=== PATIENT | female | born 1945 | race Caucasian/White ===

== ENCOUNTER 2017-08-25 04:59 | Inpatient (IN) | payer OTHER ==
[2017-07-16 13:46] VITALS: BMI 32.0
--- NOTE | 2017-07-16 14:22 | PAT Medication Instructions ---
Service Date Jul 16, 2017. Current Home Medication List Albuterol Hfa (Ventolin Hfa), 1 PUFFS INH Q6H PRN for PRN Aspirin (Aspirin Ec), 81 MG PO QPM Calcitriol (Rocaltrol Cap), 0.5 MCG PO QPM Calcium Carbonate-Vitamin D (Calcium + D), 1 TAB PO QPM Cholecalciferol (Vitamin D3), 1 TAB PO QPM Diclofenac (Voltaren), 75 MG PO QPM Levothyroxine Sodium (Levothyroxine Sodium), 1 TAB PO QAM Lisinopril (Prinivil), 5 MG PO QAM Lorazepam (Ativan), 0.5 MG PO TID PRN for PRN Multivitamin (Multivitamin), 1 TAB PO QPM Pantoprazole (Protonix), 40 MG PO QAM Ranitidine (Zantac), 150 MG PO HS Rosuvastatin Calcium (Crestor), 5 MG PO HS PRN for 0 Medication Instructions For Your Scheduled Surgery - Hold the following medications the morning of surgery: Diclofenac (Voltaren), 75 MG PO QPM (otherwise okay to continue per surgeon) Lisinopril (Prinivil), 5 MG PO QAM - Take the following medications the morning of surgery with a sip of water OTHERWISE NOTHING TO EAT OR DRINK AFTER MIDNIGHT: Albuterol Hfa (Ventolin Hfa), 1 PUFFS INH Q6H PRN for PRN (use if needed; BRING TO HOSPITAL) Levothyroxine Sodium (Levothyroxine Sodium), 1 TAB PO QAM Pantoprazole (Protonix), 40 MG PO QAM Lorazepam (Ativan), 0.5 MG PO TID PRN for PRN - Take the following medications as scheduled the night before surgery: Albuterol Hfa (Ventolin Hfa), 1 PUFFS INH Q6H PRN for PRN Aspirin (Aspirin Ec), 81 MG PO QPM Calcitriol (Rocaltrol Cap), 0.5 MCG PO QPM Calcium Carbonate-Vitamin D (Calcium + D), 1 TAB PO QPM Cholecalciferol (Vitamin D3), 1 TAB PO QPM Multivitamin (Multivitamin), 1 TAB PO QPM Ranitidine (Zantac), 150 MG PO HS Rosuvastatin Calcium (Crestor), 5 MG PO HS Lorazepam (Ativan), 0.5 MG PO TID PRN for PRN If you have any questions please call us at [phone] or [phone] or [phone]
[2017-07-16 14:58] LABS: BASO % 1.5 %; EOS % 2.5 %; EOS ABS # 0.17 K/uL (0-0.5); HEMATOCRIT 44.9 % (42-52); HEMOGLOBIN 15.5 g/dL (14.0-18.0); IG# 0.01 K/uL (0.00-0.02); LYMPH % 38.5 %; MEAN CELL VOLUME 92.8 fL (80-100); MEAN CORPUSCULAR HGB CONC 34.5 g/dl (32-36); MEAN PLATELET VOLUME 9.5 fL (7.4-10.4); MONO % 7.3 %; MONO ABS # 0.49 K/uL (0.11-0.59); NEUT % 50.1 %; NEUT ABS # 3.38 K/uL (1.4-6.5); PLATELET COUNT 256 K/uL (130-400); RED CELL DISTRIBUTION WIDTH CV 12.3 % (11.5-14.5); RED CELL DISTRIBUTION WIDTH SD 41.6 fL (36.4-46.3); WHITE BLOOD COUNT 6.75 K/uL (4.8-10.8)
[2017-07-16 15:09] LABS: PTT PATIENT 28.8 SECONDS (21.0-31.0)
[2017-07-16 15:50] LABS: ALBUMIN 3.9 gm/dl (3.4-5.0); CALCIUM 9.8 mg/dl (8.5-10.1); CREATININE 0.91 mg/dl (0.60-1.40); POTASSIUM 4.2 mmol/L (3.5-5.1)
[2017-07-16 15:52] LABS: TOTAL PROTEIN 7.4 gm/dl (6.4-8.2)
--- NOTE | 2017-08-23 08:06 | History and Physical ---
History & Physical Date Aug 23, 2017. Chief Complaint left knee pain History of Present Illness The patient is a 72 year old male with complaints of left knee pain for years. Cant do adls and limping all the time. Has failed all forms of conservative measures. shes ready for left tka. Additional History Hepatic Disease: No Endocrine Disorder: No Kidney Disease: No Hypertension: Yes Heart Disease: No Bleeding Tendencies: No Infectious Diseases: No Allergies Coded Allergies: No Known Allergies (Unverified , 07/16/17) Home Medications Scheduled Aspirin (Aspirin Ec), 81 MG PO QPM Calcitriol (Rocaltrol Cap), 0.5 MCG PO QPM Calcium Carbonate-Vitamin D (Calcium + D), 1 TAB PO QPM Cholecalciferol (Vitamin D3), 1 TAB PO QPM Diclofenac (Voltaren), 75 MG PO QPM Levothyroxine Sodium (Levothyroxine Sodium), 1 TAB PO QAM Lisinopril (Prinivil), 5 MG PO QAM Multivitamin (Multivitamin), 1 TAB PO QPM Pantoprazole (Protonix), 40 MG PO QAM Ranitidine (Zantac), 150 MG PO HS Scheduled PRN Albuterol Hfa (Ventolin Hfa), 1 PUFFS INH Q6H PRN for PRN Lorazepam (Ativan), 0.5 MG PO TID PRN for PRN Rosuvastatin Calcium (Crestor), 5 MG PO HS PRN for 0 Physical Examination Skin: warm/dry, no rash Eyes: normal inspection, EOMI, sclerae normal ENT: normal ENT inspection, pharynx normal Head: normocephalic, atraumatic Neck: supple, no adenopathy, trachea midline Respiratory/Chest: lungs clear, normal breath sounds, no respiratory distress Cardiovascular: regular rate, rhythm, no edema, no murmur Abdomen / GI: normal bowel sounds, non tender Back: normal inspection Extremities: normal inspection, normal range of motion, + pertinent finding Neurologic/Psych: no motor/sensory deficits, alert, normal reflexes, oriented x 3 Addiitonal Comments: pain with rom left knee and pain along medial joint line. Diagnosis djd left knee Plan of Treatment plan is to admit and undergo left tka.
[~2017-08-25] VITALS: Ht 162.6 cm; Wt 85.6 kg
[2017-08-25] VITALS (9 sets, daily range): BP systolic 112–179; BP diastolic 65–84; PULSE 56–73; TEMP 36.2–37; O2SAT 95–100; Ht 162.6 cm; Wt 85.6 kg
[~2017-08-25 04:59] MED LIST: ASPI81TA28 PO; CALC0.2510 PO; CALC600T9 PO; CHOL1000 PO; DICL-201 PO; LEVO100T7 PO; LISI-729 PO; LORA-741 PO; MULT-506 PO; PANT40TA PO; ROSU5TAB PO; VNTHFA/IN INH; ZNTT/150 PO
[2017-08-25] MEDS ORDERED: ROPIVACAINE 5MG/ML 30 ML 150 MG, BUPIVACAINE 0.5% MPF INJ 30 ML, EpINEphrine HCL INJ 0.... INFIL SCH ×8 (06:00)
[2017-08-25] MEDS ORDERED: CeleBREX 200 MG CAP PO SCH (06:00)
[2017-08-25] MEDS ORDERED: METOCLOPRAMIDE HCL 10 MG TAB PO SCH (06:00)
[2017-08-25] MEDS ORDERED: DEXAMETHASONE 4 MG TAB PO SCH (06:00)
[2017-08-25] MEDS ORDERED: LACTATED RINGER'S 1000ML 1,000 ML IV SCH (06:00)
[2017-08-25] MEDS ORDERED: CEFAZOLIN 2000MG IV PUSH 10 ML IV SCH (06:00)
[2017-08-25] MEDS ORDERED: LACTATED RINGER'S 1000ML 500 ML IV SCH (06:00)
[2017-08-25] MEDS ORDERED: ACETAMINOPHEN 500 MG TAB PO SCH (06:00)
[2017-08-25] MEDS ORDERED: FAMOTIDINE 20 MG TAB PO SCH (06:00)
[2017-08-25] MEDS ORDERED: LACTATED RINGER'S 1000ML IV SCH (06:00)
[2017-08-25] MEDS: TRANEXAMIC ACID INJ 1,000 MG in SYRINGE 0 ML IV SCH ×2 (06:30→06:51)
[2017-08-25] MEDS ORDERED: BUPIVACAINE 0.25% 30 ML VIAL ONE (06:31)
[2017-08-25] MEDS ORDERED: BUPIVACAINE 0.5 % 5 MG/1 ML PF 10ML VIAL ONE (06:31)
[2017-08-25] MEDS ORDERED: POVIDONE-IODINE OP SOLN 30 ML BTL ONE (06:38)
[2017-08-25] MEDS ORDERED: BACITRACIN 50000 UNIT VIAL ONE ×2 (06:38→08:04)
[2017-08-25] MEDS ORDERED: ORTHO JOINT ANESTHETIC ONE (06:38)
--- NOTE | 2017-08-25 06:45 | History & Physical Bridge Note ---
H&P Re-Evaluation Bridge Note: I have examined the patient, reviewed the History & Physical and in the interval since the performance of the History & Physical I have noted the following changes of clinical significance: No changes noted
[2017-08-25] MEDS ORDERED: MIDAZOLAM HCL 1 MG/ML 2ML VIAL ONE (06:46)
[2017-08-25] MEDS ORDERED: FENTANYL CITRATE INJ 50 MCG/1 ML 2 ML VIAL IV PRN (07:30)
[2017-08-25] MEDS ORDERED: ONDANSETRON INJ 2 MG/ML 2 ML VIAL IV PRN ×2 (07:30→08:15)
[2017-08-25] MEDS ORDERED: EpHEDrine SULFATE INJ 50 MG/ML AMP IV PRN (07:30)
[2017-08-25] MEDS ORDERED: ATROPINE SULFATE 0.1 MG/ML 5ML SYR IV PRN (07:30)
[2017-08-25] MEDS ORDERED: PROPOFOL IV EMULSION 10 MG/ML 20 ML VIAL IV ONE (07:57)
--- NOTE | 2017-08-25 08:02 | [facility] Post Operative Brief Note ---
Immediate Operative Summary Operative Date Aug 25, 2017. Pre-Operative Diagnosis Left knee degenerative joint disease Post-Operative Diagnosis Left knee degenerative joint disease Procedure(s) Performed Left Total Knee Arthroplasty-Cemented Surgeon Dr. Munguia Accounts Clerk Surgeon(s) Ada Hernandez PA-C Estimated Blood Loss 20cc Findings Consistent with Post-Op Diagnosis Specimens A: Left knee bone and tissue Drains None Complication(s) none Disposition Accompanied Pt To Recover: no Disposition: Recovery Room / PACU
--- NOTE | 2017-08-25 08:11 | [facility] Operative Report ---
Operative Report Operative Date Aug 25, 2017. Pre-Operative Diagnosis Left knee degenerative joint disease Post-Operative Diagnosis Left knee degenerative joint disease Procedure(s) Performed Left Total Knee Arthroplasty-Cemented Surgeon Dr. Munguia Garment Parts Cutter Hand Surgeon(s) Ada Hernandez PA-C Estimated Blood Loss 20cc Findings As above Specimens A: Left knee bone and tissue Complication(s) None Disposition Recovery Room / PACU Description of Procedure IMPLANTS USED: Resendiz [employer] Nephew injury to knee size 5 cemented femoral component, a size 4 tibia component, a size 12 constraint insert in the patella was not resurfaced INDICATIONS: [Mr./. ] is a pleasant (male/female) who has unfortunately failed all forms of conservative measures. Therefore, they have decided to undergo elective surgical intervention. All risks and benefits of the surgery were discussed with the patient and the family in entirety. PROCEDURE: The patient was brought to the operating room and properly identified by myself, anesthesia, and staff. Patient was given a spinal anesthesia and placed on the operating table in the supine position. Tourniquets were applied to the left upper thigh. The leg was then prepped and draped in usual sterile fashion. We made a standard midline approach over the patella and dissected down through the subcutaneous tissue to identify the capsule and performed a medial capsulotomy with the patella everted and the knee flexed.The patient matched implant was then put onto the femur. The femur measured to be a size thigh. This was then put into place. We made the appropriate cuts and then placed a retractor behind the proximal tibia to retract anteriorly. We then placed the patient matched knee implant on the tibia. It measured to be a size for. A size #4 guide was then put in place. We used the tibial punch then put the trial components into place. We had very good range of motion, excellent stability, and excellent patella tracking. We removed the trial components and irrigated the wound. We impacted the components in place using antibiotic cement. All excess cement was removed. We then irrigated the wound once more. We closed the capsule with 0 PDS suture , deep dermis and 2-0 Vicryl, and finally the skin with akhil. A sterile dressing was applied. The patient was taken to the recovery room in stable condition. Due to the complex nature of the procedure, the entire surgery was performed with the operational assistance of [paulette LEMA)]. The mechanic assistant was under direct supervision, was involved in the actual performance of all aspects of the surgical procedure including hemostasis, tissue retraction and incision, instrument management, patient positioning, and wound closure. I attest to the content of the Intraoperative Record and any orders documented therein. Any exceptions are noted below.
[2017-08-25] MEDS ORDERED: ALUMINUM/MAGNESIUM/SIMETH (MAALOX MAX) 30 ML UDC PO PRN (08:15)
[2017-08-25] MEDS ORDERED: LORAZEPAM 0.5 MG TAB PO PRN (08:15)
[2017-08-25] MEDS ORDERED: MAGNESIUM HYDROXIDE SUSP 30 ML UDC PO PRN (08:15)
[2017-08-25] MEDS ORDERED: ALBUTEROL HFA 8 GM INHALER INH PRN (08:15)
[2017-08-25] MEDS ORDERED: SOD PHOSPHATE/SOD BIPHOSPHATE ENEMA 132 ML BTL PR PRN (08:15)
[2017-08-25] MEDS ORDERED: ZOLPIDEM TARTRATE 5 MG TAB PO PRN (08:15)
[2017-08-25] MEDS ORDERED: BISACODYL 10 MG SUPP PR PRN (08:15)
[2017-08-25] MEDS: LEVOTHYROXINE 100 MCG TAB PO SCH (09:00)
--- NOTE | 2017-08-25 09:32 | Anesthesiology Progress Note ---
Anesthesia Post Op Note Date & Time Aug 25, 2017 at 09:31 Vital Signs Pain Intensity: 0 Vital Signs Past 12 Hours Date Time Temp Pulse Resp B/P (MAP) Pulse Ox O2 Delivery O2 Flow Rate FiO2 08/25/17 09:20 70 16 145/81 99 Nasal Cannula 2 08/25/17 09:10 71 16 163/85 99 Nasal Cannula 2 08/25/17 09:00 82 14 163/85 100 Nasal Cannula 2 08/25/17 08:50 73 19 143/83 100 Oxymask 10 08/25/17 08:40 73 21 144/77 100 Oxymask 10 08/25/17 08:39 36.6 81 14 163/78 100 Oxymask 10 08/25/17 05:45 36.4 66 20 179/81 99 Room Air Notes Mental Status: alert / awake / arousable, participated in evaluation Pt Amnestic to Procedure: Yes Nausea / Vomiting: adequately controlled Pain: adequately controlled Airway Patency, RR, SpO2: stable & adequate BP & HR: stable & adequate Hydration State: stable & adequate Neuraxial Anesthesia: was administered, sensory block is resolving Anesthetic Complications: no major complications apparent
[2017-08-25] MEDS: LISINOPRIL 5 MG TAB PO SCH (11:11)
[2017-08-25] MEDS: DOCUSATE SODIUM 100 MG CAP PO SCH ×2 (11:12→21:01)
[2017-08-25] MEDS: SODIUM CHLORIDE 0.9% 1000ML 1,000 ML IV SCH ×2 (11:13→21:00)
[2017-08-25] MEDS: ACETAMINOPHEN 500 MG TAB PO SCH ×2 (13:58→21:56)
[2017-08-25] MEDS: CEFAZOLIN IV 2,000 MG in SYRINGE 0 ML IV SCH ×2 (16:05→23:31)
[2017-08-25] MEDS: OXYCODONE HCL IR 5 MG TAB (IMMEDIATE RELEASE) PO PRN ×2 (18:50→23:32)
[2017-08-25] MEDS: ROSUVASTATIN CALCIUM 10 MG TAB PO SCH (21:01)
[2017-08-25] MEDS: SENNA 8.6 MG TAB PO SCH (21:01)
[2017-08-25] MEDS: ASPIRIN 81 MG ECTAB PO SCH (21:01)
[2017-08-26] VITALS (8 sets, daily range): BP systolic 120–164; BP diastolic 67–83; PULSE 54–61; TEMP 36.7–37.1; O2SAT 91–99
[2017-08-26] MEDS: SODIUM CHLORIDE 0.9% 1000ML 1,000 ML IV SCH (05:58)
[2017-08-26] MEDS: LEVOTHYROXINE 100 MCG TAB PO SCH (05:59)
[2017-08-26] MEDS: ACETAMINOPHEN 500 MG TAB PO SCH ×3 (05:59→22:00)
[2017-08-26] MEDS ORDERED: DEXAMETHASONE INJ 10 MG in SYRINGE 0 ML IV ONE (07:30)
--- NOTE | 2017-08-26 07:33 | Anesthesiology Progress Note ---
Anesthesia Post Op Note Date & Time Aug 26, 2017 at 07:33 Vital Signs Pain Intensity: 0.0 Vital Signs Past 12 Hours Date Time Temp Pulse Resp B/P (MAP) Pulse Ox O2 Delivery O2 Flow Rate FiO2 08/26/17 07:21 36.8 54 16 121/70 (87) 94 Room Air 08/26/17 03:00 36.7 59 16 120/70 (87) 94 Room Air 08/25/17 23:30 Room Air 08/25/17 23:25 36.8 56 18 127/74 (91) 95 Room Air 08/25/17 20:00 36.5 65 18 112/65 (81) 95 Room Air Notes Mental Status: alert / awake / arousable, participated in evaluation Pt Amnestic to Procedure: Yes Nausea / Vomiting: adequately controlled Pain: adequately controlled Airway Patency, RR, SpO2: stable & adequate BP & HR: stable & adequate Hydration State: stable & adequate Neuraxial Anesthesia: was administered, sensory block resolved Anesthetic Complications: no major complications apparent
--- NOTE | 2017-08-26 08:29 | Orthopedic Progress Note ---
Orthopedic Progress Note Date of Service Aug 26, 2017. Subjective Post OP Day: 1 Reports: feeling well, light headedness, Denies: chest pain, SOB Additional Notes: States that she got dizzy in the BR after receiving IV steroids. No other complaints. Lying in bed currently and still a bit lightheaded. Mild pain behind the operative knee. Objective calves soft nontender, N/V intact, dressing C/D/I, A&O x3, toes mobile Date Time Temp Pulse Resp B/P (MAP) Pulse Ox O2 Delivery O2 Flow Rate FiO2 08/26/17 08:13 120/67 (84) 08/26/17 07:21 36.8 54 16 121/70 (87) 94 Room Air 08/26/17 03:00 36.7 59 16 120/70 (87) 94 Room Air 08/25/17 23:30 Room Air 08/25/17 23:25 36.8 56 18 127/74 (91) 95 Room Air 08/25/17 20:00 36.5 65 18 112/65 (81) 95 Room Air 08/25/17 15:40 36.2 67 18 115/70 (85) 96 Nasal Cannula 2.0 08/25/17 15:12 Nasal Cannula 2.0 08/25/17 12:50 37.0 73 18 131/73 (92) 95 Nasal Cannula 2.0 08/25/17 11:54 60 16 130/80 (97) 98 2.0 08/25/17 10:51 36.5 60 16 148/75 (99) 100 Nasal Cannula 2.0 08/25/17 10:20 36.4 56 15 150/76 (100) 100 Nasal Cannula 2.0 08/25/17 09:50 98 Nasal Cannula 2.0 08/25/17 09:50 98 Nasal Cannula 2.0 08/25/17 09:50 36.4 70 16 152/84 (106) 98 Nasal Cannula 2.0 08/25/17 09:40 36.3 66 10 163/82 100 Nasal Cannula 2 08/25/17 09:30 36.2 74 16 152/80 99 Nasal Cannula 2 08/25/17 09:20 70 16 145/81 99 Nasal Cannula 2 08/25/17 09:10 71 16 163/85 99 Nasal Cannula 2 08/25/17 09:00 82 14 163/85 100 Nasal Cannula 2 08/25/17 08:50 73 19 143/83 100 Oxymask 10 08/25/17 08:40 73 21 144/77 100 Oxymask 10 08/25/17 08:39 36.6 81 14 163/78 100 Oxymask 10 Assessment & Plan Assessment: POD 1 s/p Left TKA Plan: PT/OT today Planning for HH PT Inhouse Planning Pain Management: PO Tylenol, Oxy IR DVT Prophylaxis: TEDs, SCDs, ASA Discharge Planning Discharge Planning: home with home health
[2017-08-26] MEDS: DOCUSATE SODIUM 100 MG CAP PO SCH ×2 (09:09→20:52)
[2017-08-26] MEDS: ASPIRIN 81 MG ECTAB PO SCH ×2 (09:09→20:52)
[2017-08-26] MEDS: LISINOPRIL 5 MG TAB PO SCH (09:10)
[2017-08-26] MEDS: OXYCODONE HCL IR 5 MG TAB (IMMEDIATE RELEASE) PO PRN ×4 (09:10→20:54)
--- NOTE | 2017-08-26 09:16 | Discharge Instructions ---
Discharge Instructions Date of Service Aug 26, 2017. Admission Reason for Admission: Left Knee Osteoarthritis Discharge Discharge Diagnosis / Problem: Left Knee Djd Discharge Goals Goal(s): Decrease discomfort, Improve function, Increase independence Activity Recommendations Activity Limitations: per Instructions/Follow-up section Weightbearing Status: Left weightbearing (as tolerated) . Instructions / Follow-Up Instructions / Follow-Up Dr. Munguia Total Knee Replacement Discharge Instructions DERMABOND Prineo- This is a mesh tape dressing that is covered with glue. It should remain in place until the incision is properly healed, usually 10-14 days. This dressing is designed to naturally slough off. You may trim the excess mesh tape as it peels off. Incision may be briefly wet in a shower. Dry immediately by blotting with a clean, dry towel. Do not bath or swim until instructed by your doctor. Do not scratch, rub, or pick at the dressing. Do not apply any topical ointments or lotions until dressing is completely removed and/or instructed by your doctor. There may be a small piece of suture material at one end of your incision. Do not pull or trim this. If it is bothersome or catching on clothing, you may cover it with a band-aid. ICE and ELEVATE constantly. If a drain is in place, it is removed when less than 10cc for 2 consecutive 8 hr shifts. IF SAIRA / Prevena device in place, please see the instruction sheet. Also, every Home Nursing Agency, Home PT, and Rehab is aware how this works. If your home nurse or therapist says they don't know want this is, have them call you [facility] or the automation sales manager right away, it is meant to protect and help your incision heal faster. Please read the Do's and Don'ts sheet. This paper and the Do's and Don'ts are the most important. The rest of your paperwork from hospital is redundant and or confusing. This is the info I want you to take to heart. I typically give you 5 prescriptions. Some are Eprescribed to your pharmacy already. They are: 1. Oxycodone or some form of a narcotic pain pill. Please take. Most important. 2. Aspirin - this is for blood clot prevention, please take. You may have them prescribe something stronger than aspirin, if so, you won't have a script for aspirin daily. 3. Tylenol 4. Zofran-this is for nausea, take if you need. 5. Celebrex-helps with inflammation, if not covered by insurance, then use ibuprofen 600 mg, 2 to 3 times a day. If any problems or concerns, please call [facility] (Or Charlette Ovalles if she is your coordinator) FIRST. DO not go to the ER unless directed by your [facility] Physician or it's an absolute emergency. Our phone numbers are located all throughout the your [facility] packet. Current Hospital Diet Patient's current hospital diet: Regular Diet Discharge Diet Recommended Diet: Regular Diet Procedures Procedures Performed: Left Total Knee Arthroplasty-Cemented Pending Studies Studies pending at discharge: no Medical Emergencies . Who to Call and When: Medical Emergencies: If at any time you feel your situation is an emergency, please call 911 immediately. . Non-Emergent Contact Non-Emergency issues call your: Surgeon Call Non-Emergent contact if: temperature is above 101.5, your pain is not controlled, your pain is worsening, wound has increased drainage, wound has increased redness . "Provider Documentation" section prepared by Davonte Singh. . VTE Core Measure Inpt VTE Proph given/why not?: Other Anticoagulation, T.E.D. Stockings, SCD's [place] Drug Monitoring Program Search Results: patient reviewed within database, no issues identified
[2017-08-26] MEDS ORDERED: ASPI81TA28 PO (09:20)
[2017-08-26] MEDS ORDERED: ACET-24 PO (09:20)
[2017-08-26] MEDS ORDERED: RXC5 PO (09:20)
[2017-08-26] MEDS ORDERED: SENN-61 PO (09:20)
[2017-08-26] MEDS: SENNA 8.6 MG TAB PO SCH (20:52)
[2017-08-26] MEDS: ROSUVASTATIN CALCIUM 10 MG TAB PO SCH (20:53)
[2017-08-27 00:10] VITALS: BP 165/77; PULSE 55; TEMP 36.9; O2SAT 95
[2017-08-27] MEDS: LEVOTHYROXINE 100 MCG TAB PO SCH (05:56)
[2017-08-27] MEDS: ACETAMINOPHEN 500 MG TAB PO SCH (05:57)
[2017-08-27 06:04] VITALS: BP 167/77; PULSE 71; TEMP 36.6; O2SAT 96
[2017-08-27] MEDS ORDERED: TRAMADOL HCL 50 MG TAB PO PRN (07:30)
--- NOTE | 2017-08-27 07:46 | Orthopedic Progress Note ---
Orthopedic Progress Note Date of Service Aug 27, 2017. Subjective Post OP Day: 2 Reports: feeling well, complaints (itching from OxyIR) Additional Notes: c/o itching from the OxyIR last night. No new complaints. Pain controlled. Objective calves soft nontender, N/V intact, incision C/D/I, A&O x3, toes mobile Date Time Temp Pulse Resp B/P (MAP) Pulse Ox O2 Delivery O2 Flow Rate FiO2 08/27/17 06:04 36.6 71 16 167/77 (107) 96 Room Air 08/27/17 00:10 36.9 55 16 165/77 (106) 95 Room Air 08/26/17 20:20 Room Air 08/26/17 19:18 37.0 61 16 152/83 (106) 98 Room Air 08/26/17 18:19 37.1 160/72 (101) 08/26/17 17:49 164/77 (106) 08/26/17 15:35 36.9 58 16 162/78 (106) 91 Room Air 08/26/17 10:45 36.8 60 17 152/76 (101) 99 Room Air 08/26/17 08:13 120/67 (84) Assessment & Plan Assessment: POD 2 s/p Left TKA Plan: Changed meds to [place] and Tramadol and see how she tolerates PT/OT today Planning for HH PT Plan for dc to home today Inhouse Planning Pain Management: Ultram, [place] DVT Prophylaxis: TEDs, SCDs, ASA Discharge Planning Discharge Planning: home with home health
[2017-08-27] MEDS ORDERED: HYDR-5688 PO (07:48)
[2017-08-27] MEDS: ASPIRIN 81 MG ECTAB PO SCH (07:51)
[2017-08-27] MEDS: DOCUSATE SODIUM 100 MG CAP PO SCH (07:51)
[2017-08-27] MEDS: LISINOPRIL 5 MG TAB PO SCH (07:52)
[2017-08-27] MEDS: HYDROCODONE/ACETAMOPHEN 5/325MG TAB PO PRN ×2 (07:55→14:34)
[2017-08-27 10:36] VITALS: BP 167/77; PULSE 71; TEMP 36.6; O2SAT 96
== END 2017-08-27 14:30 | disposition home health service (06) | DRG 470 ==
LOC: C.ACU 04:59 → C.3E 08:08 → EDSEX 08:08 → ENRESERV 09:24
PROVIDERS: ADMIT Orthopaedic Surgery; ATTEND Orthopaedic Surgery
PROC: 0SRD0J9 Replacement of Left Knee Joint with Synthetic Substitute, Cemented, Open Approach (ICD-10-PCS; principal; 2017-08-25 07:00)
DX: M17.12 Unilateral primary osteoarthritis, left knee (principal); I10 Essential (primary) hypertension; E78.5 Hyperlipidemia, unspecified; E03.9 Hypothyroidism, unspecified; K21.9 Gastro-esophageal reflux disease without esophagitis; E66.9 Obesity, unspecified; Z68.32 Body mass index [BMI] 32.0-32.9, adult; Z79.1 Long term (current) use of non-steroidal anti-inflammatories (NSAID); Z79.82 Long term (current) use of aspirin; Z79.899 Other long term (current) drug therapy